=== PATIENT | male | born 1990 | race Caucasian/White ===

== ENCOUNTER 2018-12-14 18:37 | Emergency (ER) | payer SELFPAY ==
[~2018-12-14] VITALS: Ht 190.5 cm; Wt 91.1 kg
[2018-12-14] MEDS ORDERED: ADVIL 200MG TA200 MG PO (18:49)
[2018-12-14] MEDS ORDERED: KETOROLAC10 MG PO (21:43)
[2018-12-14 21:54] VITALS: BP 116/68
== END 2018-12-14 21:54 | disposition home or self-care (01) ==
LOC: ED 18:37
DX: T14.8XXA Other injury of unspecified body region, initial encounter (principal); F43.10 Post-traumatic stress disorder, unspecified; F41.9 Anxiety disorder, unspecified; W10.9XXA Fall (on) (from) unspecified stairs and steps, initial encounter; Y92.009 Unspecified place in unspecified non-institutional (private) residence as the place of occurrence of the external cause
CPT/HCPCS: J1885